=== PATIENT | female | born 1960 | race Caucasian/White ===

== ENCOUNTER → 2016-10-30 | Emergency (ER) | payer OTHER ==
--- NOTE | 2016-10-30 12:32 | PROVIDER DOCUMENTATION ---
HPI-Psychological Disorder - General Chief Complaint: Altered Mental Status Stated Complaint: ams Time Seen by Provider: 10/30/16 12:13 Source: patient, EMS Allergies/Adverse Reactions: Patient Allergies Allergy/AdvReac Type Severity Reaction Status Date / Time cephalexin monohydrate * Allergy Severe TONGUE Verified 10/30/16 12:20 [From Keflex] SWELLING metoclopramide HCl * Allergy Severe "EVERY Verified 10/30/16 12:20 [From Reglan] SIDE AFFECT" acetaminophen Allergy Unknown HIVES Verified 10/30/16 12:20 [From Darvocet-N 100] morphine Allergy Unknown Unknown Verified 10/30/16 12:20 propoxyphene napsylate * Allergy Unknown HIVES Verified 10/30/16 12:20 [From Darvocet-N 100] Home Medications: Aspirin [Aspirin EC] 81 mg PO QAM 07/04/13 Atenolol [Tenormin] 12.5 mg PO BID 07/04/13 Buspirone [Buspar] 10 mg PO BID PRN 07/04/13 Escitalopram [Lexapro] 20 mg PO DAILY 07/04/13 Famotidine [Acid Control] 20 mg PO DAILY 07/04/13 Ferrous Sulfate 500 gm MC 4XDAY 07/04/13 Furosemide [Lasix] 20 mg PO DAILY 07/04/13 Hydroxyzine HCl 25 mg PO Q6H PRN PRN 07/04/13 Levothyroxine [Synthroid] 100 microgm PO DAILY 07/04/13 Magnesium 250 mg PO DAILY 07/04/13 Meloxicam 15 mg PO HS 07/04/13 Naproxen Sodium [Aleve] 220 mg PO Q8H PRN PRN 07/04/13 Conway-3 Fatty Acids/Fish Oil [Conway 3 1,000 mg Softgel] 1 each PO DAILY Penicillin V Potassium [Pen Vk] 500 mg PO Q6HR 07/04/13 Potassium Chloride [Klor-Con M20] 20 meq PO QAM 07/04/13 Zolpidem Tartrate 10 mg PO HS 07/04/13 - History of Present Illness-Psych Nature of Presenting Problem: 56 y/o F presents to the ED via EMS due to suicidal attempt. EMS states the initial call was that patient had a gun to her head. Patient states she pulled the trigger but the gun jammed. Family took the gun away from her. Denies all other symptoms. Onset/Duration: reports: just prior to arrival Timing: reports: still present Severity: reports: moderate Psychiatric Complaints: reports: anxiety, depressed, suicidal ideation Patient arrived by:: EMS called by spouse/family Similar Symptoms Previously?: No Recently seen or treated by another doctor?: No Review of Systems - Adult - REVIEW OF SYSTEMS - ADULT Constitutional: denies: chills, fever Eyes: reports: no symptoms reported Ears, Nose, Mouth & Throat: reports: no symptoms reported Cardiovascular: denies: chest pain, syncope Respiratory: denies: cough, shortness of breath, wheezing Gastrointestinal: denies: diarrhea, nausea, vomiting Genitourinary: reports: no symptoms reported Musculoskeletal: reports: no symptoms reported Integumentary: reports: no symptoms reported Neurological: reports: no symptoms reported Psychiatric: reports: depression, emotional problems, suicidal thoughts Endocrine: reports: no symptoms reported Hematologic/Lymphatic: reports: no symptoms reported Allergic/Immunologic: reports: no symptoms reported Past History - Adult - PAST MEDICAL HISTORY-ADULT Review of Records: reports: Nursing Assessment Review, Medications Reviewed, Social history reviewed & non-contributory. Physical Exam-Psych Focus - Physical Exam-Psych Initial Vital Signs Reviewed: Yes Appearance: alert, anxious, other (tearful) Neurological: alert, oriented x 3, anxious Behavior/Eye Contact/Speech: cooperative, good eye contact, normal speech Thoughts/Hallucinations: no apparent hallucination, flight of ideas HENMT: moist mucous membranes, normal ENT inspection Neck: non-tender, full range of motion Respiratory: chest non-tender, normal breath sounds, no respiratory distress Cardiovascular: normal peripheral pulses, regular rate, rhythm Abdominal Exam: normal bowel sounds, non tender Extremity: normal range of motion, normal inspection Integumentary: normal color, warm/dry Progress - PLAN OF CARE/RESULTS Progress/Plan/Lab Results: 1600-- discussed with family and patient about being admitted. patient and family refused admission. agrees to take responsibility for patient. advised to return if needed. Departure - Departure Time of Disposition Order: 16:05 DIAGNOSIS: Suicidal ideations, Substance abuse Disposition: HOME 01 Certified Medical Emergency: Emergent Condition: Stable Additional Instructions: ED Follow Up Instructions: You have been treated by a care provider in the Emergency Department. These instructions are being provided to you so you can have an understanding of how to care for yourself upon discharge. Upon discharge from the Emergency Department, you are responsible for making arrangements for follow-up care by a physician of your choice. Take all prescribed medications as directed. Return to the Emergency Department immediately for any new or worsening symptoms. You may call the Physician Referral phone number at [phone] to obtain a list of Physicians who are taking new patients. Referrals: Zhanna Pepe [Primary Care Provider] - Instructions: Suicidal Feelings: How to Help Yourself Attestation - Scribe Verification/Attestation Scribe:: Kalpesh Moore Acting as Scribe for:: Oskar Bah Scribe documention review:: This chart was documented by a scribe and accurately reflects the service the provider performed and the decisions made by the provider.
[2016-10-30 13:16] LABS: MANUAL DIFF NEEDED? NO
[2016-10-30 13:16] LABS: URINE SOURCE VOIDED
[2016-10-30 13:20] LABS: BASO% 0.1 % (0.0-0.8); EOS% 1.4 % (0.0-10.0); HEMATOCRIT 42.3 % (37.0-47.0); IMM GRAN# 0.02 X1000 (0.0-0.04); IMM GRAN% 0.3 % (0.0-0.5); LYMPH# 2.06 X1000 (1.2-3.4); LYMPH% 29.7 % (20.5-51.1); MCH 31.9 PG (27-31); MCHC 33.1 g/dL (33-37); MCV 96.4 FL (81-99); MONO# 0.32 X1000 (0.11-0.59); MONO% 4.6 % (1.7-9.3); MPV 9.8 FL (7.4-10.4); NEUT% 63.9 % (42.2-75.2); PLT 210 X1000 (130-400); RBC 4.39 XMIL (4.2-5.4)
[2016-10-30 13:28] LABS: BILIRUBIN URINE NEGATIVE (NEGATIVE); BLOOD URINE NEGATIVE (NEGATIVE); CLARITY CLEAR (CLEAR); COLOR YELLOW; GLUCOSE URINE NEGATIVE (NEGATIVE); LEUKOCYTES URINE 2+ (NEGATIVE); NITRITE URINE POSITIVE (NEGATIVE); PROTEIN URINE NEGATIVE (NEGATIVE); UROBILINOGEN URINE NORMAL
[2016-10-30 13:30] LABS: UR AMPHETAMINES QUAL NONE DETECTED (NONE DETECT); UR BARBITUATES QUAL NONE DETECTED (NONE DETECT); UR BENZODIAZEPIN QUAL PRESUMPTIVE POSITIVE (NONE DETECT); UR CANNABINOIDS QUAL NONE DETECTED (NONE DETECT); UR COCAINE QUAL NONE DETECTED (NONE DETECT); UR MDMA QUAL NONE DETECTED (NONE DETECT); UR METHADONE QUAL NONE DETECTED (NONE DETECT); UR METHAMPHETAMINE QUAL NONE DETECTED (NONE DETECT); UR OPIATES QUAL NONE DETECTED (NONE DETECT); UR OXYCODONE QUAL NONE DETECTED (NONE DETECT); UR PCP QUAL NONE DETECTED (NONE DETECT); UR TCA QUAL NONE DETECTED (NONE DETECT)
[2016-10-30 13:38] LABS: URINE CULTURE PL NEEDED? YES; URINE EPITHELIAL CELLS <10 /HPF (<10); URINE RBC <10 /HPF (<10); URINE WBC 20-40 /HPF (<10)
[2016-10-30 13:40] LABS: AGAP 14; ALBUMIN 4.2 g/dL (3.5-5.0); ALKALINE PHOSPHATASE 88 U/L (32-104); BUN 7 mg/dL (8-22); CALCIUM 8.6 mg/dL (8.8-10.2); CHLORIDE 107 mmol/L (98-107); COSMO 280; GOT 16 U/L (10-30); GPT 13 U/L (10-36); POTASSIUM 3.7 mmol/L (3.5-5.1); SODIUM 142 mmol/L (136-145); TCO2 22 mmol/L (25-35); TOTAL PROTEIN 7.2 g/dL (6.3-8.3)
[2016-10-30 13:49] LABS: FREE T4 1.25 ng/dL (0.93-1.70)
[2016-10-30 16:14] VITALS: BP 137/84
== END | disposition home or self-care (01) ==
LOC: P.ED 12:12
DX: R45.851 Suicidal ideations (principal); F19.10 Other psychoactive substance abuse, uncomplicated; R41.82 Altered mental status, unspecified; F32.9 Major depressive disorder, single episode, unspecified; Z79.82 Long term (current) use of aspirin; Z79.899 Other long term (current) drug therapy
CPT/HCPCS: 36415; 80053; 81001; 82607; 84439; 84443; 85025; 87077; 87088; 87186; 99284; G0477; G0480